=== PATIENT | male | born 1965 | race Caucasian/White ===

== ENCOUNTER 2017-08-10 21:00 | Emergency (ER) | payer MEDICAID ==
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
[2017-08-10 21:23] VITALS: BP 134/80; PULSE 80; RESP 20; TEMP 97.9; O2SAT 93
[2017-08-10] MEDS ORDERED: IBUPROFEN 600 MG TAB PO ONE (21:40)
[2017-08-10] MEDS ORDERED: ACETAMINOPHEN 325 MG TAB PO ONE (21:40)
== END 2017-08-10 22:14 | disposition home or self-care (01) ==
DX: S70.12XA Contusion of left thigh, initial encounter (principal); S50.12XA Contusion of left forearm, initial encounter; S30.0XXA Contusion of lower back and pelvis, initial encounter; Y08.02XA Assault by strike by baseball bat, initial encounter; F17.200 Nicotine dependence, unspecified, uncomplicated

== ENCOUNTER 2017-09-30 12:06 | Emergency (ER) | payer MEDICAID ==
[~2017-09-30 12:06] MED LIST: AMOXICILLIN/CLAVULANATE POT 875/125 MG TAB PO SCH
[2017-09-30 12:22] VITALS: BP 124/90; PULSE 86; RESP 16; TEMP 97.9; O2SAT 96
[2017-09-30] MEDS ORDERED: AMOXICILLIN/CLAVULANATE POT 875/125 MG TAB PO ONE ×2 (12:22)
--- NOTE | 2017-09-30 12:26 | EDPHY ---
H & P Time Seen by Provider: 09/30/17 12:18 HPI/ROS: CHIEF COMPLAINT: Dog bite right medial thigh HISTORY OF PRESENT ILLNESS: 52-year-old homeless male with out-of-date tetanus , no medication allergies, arrives via ambulance after he states and another homeless males dog bit him on the right medial distal thigh shortly prior to arrival through his jeans. Has been reported to animal control police. Patient denies foreign body sensation. Denies paresthesia. Able bear weight PHYSICAL EXAM (Prior to examination, patient consented to physical exam, hands were washed and my usual and customary physical exam procedures followed) 1) GENERAL: Well-developed, well-nourished, alert and oriented. Appears to be in no acute distress. 2) HEAD: Normocephalic 3) HEENT: sclera anicteric 4) LUNGS: Breathing comfortably. 5) SKIN: right medial distal thigh puncture wound/abrasion. No active bleeding. Superficial. 6) MUSCULOSKELETAL: [full pain-free range of motion of the knee joint with no obvious involvement of the joint capsule. No flexor extensor deficits at the Knee Smoking Status: Heavy smoker Constitutional: Initial Vital Signs Temperature (C) 36.6 C 09/30/17 12:06 Heart Rate 86 09/30/17 12:06 Respiratory Rate 16 09/30/17 12:06 Blood Pressure 124/90 H 09/30/17 12:06 O2 Sat (%) 96 09/30/17 12:06 O2 Delivery Mode Room Air Allergies/Adverse Reactions: No Known Allergies Allergy (Verified 09/30/17 12:16) Home Medications: Medication Instructions Recorded Amoxicillin/Clavulanate Pot 875 mg PO BID #14 tab 09/30/17 [Augmentin 875 mg tab] MDM/Departure - MDM Procedures: Procedure: Wound anesthetic Indications risks benefits discussed with patient he consented. 1% plain lidocaine infiltrated into the wound site prior to wound cleaning. Will be allowed to heal via secondary intention. ED Course/Re-evaluation: Patient's wound has been irrigated in the ER and will be allowed to heal via secondary intention. He has been started on Augmentin, tetanus updated, given MAP prescription of his Augmentin via the hospital. No signs of infection at this time. Doubt traumatic arthrotomy. I do not think that imaging studies or orthopedic consultation emergently indicated. Care of patient under supervision of secondary supervising physician Dr Walls . - Depart Disposition: Home, Routine, Self-Care Clinical Impression: Dog bite of right lower leg Qualifiers: Encounter type: initial encounter Qualified Code(s): S81.851A - Open bite, right lower leg, initial encounter; W54.0XXA - Bitten by dog, initial encounter ; W54.0XXA - Bitten by dog, initial encounter Condition: Good Instructions: Animal Bite (ED) Additional Instructions: Return to the ER if you develop redness, swelling, discharge, warmth to the wound, red streaks going up your leg, or any other symptoms that concern you. Prescriptions: Amoxicillin/Clavulanate Pot [Augmentin 875 mg tab] 875 mg PO BID #14 tab Referrals: [facility],. [Clinic] - 10/03/17
[2017-09-30] MEDS ORDERED: TDAP ADULT 0.5 ML INJ (BOOSTRIX) IM ONE ×2 (12:27)
== END 2017-09-30 13:08 | disposition home or self-care (01) ==
LOC: EDUNIT# → EDBD
DX: S81.851A Open bite, right lower leg, initial encounter (principal); F17.200 Nicotine dependence, unspecified, uncomplicated; Z23 Encounter for immunization; W54.0XXA Bitten by dog, initial encounter

== ENCOUNTER 2018-09-25 11:08 | Emergency (ER) | payer MEDICAID ==
[2018-09-25 11:20] VITALS: BP 111/79
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
== END 2018-09-25 11:25 | disposition home or self-care (01) ==
LOC: EDUNIT#
DX: M25.562 Pain in left knee (principal); F17.200 Nicotine dependence, unspecified, uncomplicated; Z59.0 Homelessness

== ENCOUNTER 2018-10-08 08:04 | Emergency (ER) | payer MEDICAID ==
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
[2018-10-08] MEDS ORDERED: IBUPROFEN 800 MG TAB PO ONE ×2 (08:45→08:46)
[2018-10-08 08:52] VITALS: BP 150/90
== END 2018-10-08 09:44 ==
LOC: EDUNIT# → UNDOADMIN 08:59
DX: S82.042A Displaced comminuted fracture of left patella, initial encounter for closed fracture (principal); V03.90XA Pedestrian on foot injured in collision with car, pick-up truck or van, unspecified whether traffic or nontraffic accident, initial encounter; Z59.0 Homelessness

== ENCOUNTER 2018-12-28 06:32 | Inpatient (IN) | payer MEDICAID ==
[2018-12-28] MEDS ORDERED: HYDROmorphONE/DILAUDID 2 MG/ML INJ IVP ONE (07:10)
[2018-12-28] MEDS ORDERED: NS 1,000 ML IV ONE (07:10)
[2018-12-28 07:16] LABS: PLATELET COUNT 377 10^3/uL (150-400)
[2018-12-28 07:25] LABS: INR 0.91 (0.83-1.16); PROTIME(PATIENT) 12.5 SEC (12.0-15.0)
[2018-12-28] MEDS ORDERED: HYDROmorphONE/DILAUDID 1 MG/ML INJ ONE (07:25)
[2018-12-28] MEDS ORDERED: VANCOMYCIN HCL/NORMAL SALINE 250 ML IV ONE (07:47)
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
[2018-12-28] MEDS ORDERED: ONDANSETRON 4 MG/2 ML VIAL IVP PRN (13:14)
[2018-12-28] MEDS ORDERED: ACETAMINOPHEN 325 MG TAB PO PRN (13:14)
[2018-12-28] MEDS ORDERED: HYDROmorphONE/DILAUDID 1 MG/ML INJ IVP PRN (13:14)
[2018-12-28] MEDS ORDERED: traMADol 50 MG TAB PO PRN (13:14)
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
[2018-12-28] MEDS: oxyCODONE IR 5 MG TAB PO PRN ×2 (14:41→20:03)
--- NOTE | 2018-12-28 15:53 | PDMN ---
Medical Necessity Medical necessity: Pt meets IP criteria as of 12/28/2018 per and RODRIGUE LEW ( Musculoskeletal Disease GRG); est los > 2mn for ongoing tx and evaluation of possible septic knee s/p recent hardware removal; requiring IV ABX, ID consultation, pain control and surgical consultation.
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
[2018-12-28] MEDS: VANCOMYCIN 1 GM in NS 250 ML IV SCH (19:56)
[2018-12-29] MEDS: oxyCODONE IR 5 MG TAB PO PRN ×6 (00:44→23:29)
[2018-12-29] MEDS: VANCOMYCIN 1 GM in NS 250 ML IV SCH ×2 (08:42→19:58)
--- NOTE | 2018-12-29 09:35 | PCMIDPN ---
Assessment/Plan: 1. Left knee postoperative cielo-incisional cellulitis, with concern for deeper infection: Reviewed MRI with Dr. Sr. Patient to have an aspirate of the fluid seen on MRI today as well as the joint to make sure he does not have a septic arthritis. It is heartening that culture specimens from [facility] shown no growth. This may all be superficial. Inflammatory markers only marginally elevated (CRP). Continue vancomycin as is for now. 2. Miscellaneous: Patient is homeless and there is an outbreak of hepatitis a among the homeless population. Will obtain hepatitis a total antibody and vaccinate if not immune. He does not feel he needs HIV testing. Last Tdap 2017. Over 25 min spent with this patient today. Subjective: A bit grouchy this morning, but softened up when I started talking to him. States that he was admitted to [facility] in [place] last week. States that the knee was not infected or did not appear affected (no warmth or redness) prior to the hardware removal. I did call [facility] ( please see objective). For microbiology specimens. Patient is otherwise feeling reasonably well. Is having some discomfort in his left knee. Denies fevers or shaking chills. Objective: Afebrile Vancomycin 1 g IV q.12 hours Vital Signs Temp Pulse Resp BP Pulse Ox 36.7 C 79 96 H 106/71 94 12/29/18 08:00 12/29/18 08:00 12/29/18 08:00 12/29/18 08:00 12/29/18 04:00 12/28/18 12/29/18 12/30/18 05:59 05:59 05:59 Intake Total 1650 Output Total 2275 Balance -625 ESR 13 MM/HR (0-20) 12/28/18 06:50 C-Reactive Protein 12.7 mg/L (<10.0) H 12/28/18 06:50 Microbiology data obtained from [facility]: ([phone]) December 15: Left knee fluid: G stain culture negative December 16 blood cultures x2 negative December 17 knee fluid: G stain culture negative Surgical "tissue culture": G stain negative, culture negative, anaerobic culture fungal culture and AFB negative - Physical Exam General Appearance: other (Disheveled) EENT: pharynx normal, No scleral icterus, No thrush Respiratory: lungs clear Cardiac/Chest: regular rate, rhythm Extremities: other (Left knee: Swollen with sutures overlying the left knee. Cielo-incisional erythema that is fairly beet red. Blanches. No vesicles. No active drainage from the knee. He is unable to bend it given location of the sutures.) Abdomen: non-tender, soft Skin: No rash, No embolic lesions ICD10 Worksheet Patient Problems: Problems Problem Status Onset Cellulitis of knee, left Acute Fractured patella Acute
[2018-12-29] MEDS ORDERED: LIDOCAINE 1% 300 MG/30 ML SDV ONE (11:19)
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
--- NOTE | 2018-12-29 12:23 | SOAPPROG ---
SOAP Progress Note Assessment/Plan: 53 yo male w/ left ununited patella fx w/ ? infection, s/p ultrasound aspiration on 12/29/18 -on hospitalist service, pain/proph per primary -cont id recs, currently vanco abx -us aspiration results reviewed w/ dr. molina, dr. molina believes it is likely a post op hematoma, he will see the patient later this evening and discuss further treatment with the patient. -will attempt to obtain op report from [facility] in [place] Subjective: kaylie denies any issues, at this time, resting comfortably in bed, reprots the US drainage went well, denies any issues from the procedure, and the knee feels better than before a little bit. denies fevers/chills, denies cp/sob, denies numbness/tingling. reports pain is well controlled as long as he doesn't move the leg. Objective: passive extension loss 3 degrees, improved from previous day passive fleixion 3-35 w/ pain at end range, improved from previous day Vital Signs Temp Pulse Resp BP Pulse Ox 36.7 C 79 96 H 106/71 94 12/29/18 08:00 12/29/18 08:00 12/29/18 08:00 12/29/18 08:00 12/29/18 04:00 12/28/18 12/29/18 12/30/18 05:59 05:59 05:59 Intake Total 1650 50 Output Total 2350 600 Balance -625 -550 PT 12.5 SEC (12.0-15.0) 12/28/18 06:50 INR 0.91 (0.83-1.16) 12/28/18 06:50 ICD10 Worksheet Patient Problems: Problems Problem Status Onset Cellulitis of knee, left Acute Fractured patella Acute
[2018-12-29 13:40] LABS: HEPATITIS A ANTIBODY TOTAL NEGATIVE (NEGATIVE)
--- NOTE | 2018-12-29 18:02 | SOAPPROG ---
SOAP Progress Note Assessment/Plan: Assessment: likely postop hematoma Plan: 12/29/18 17:59 antibiotics followup with eden aquino surgeon no surgical debridement at this time Subjective: knee aspiration today fluid consistent with postop hematoma many RBC no crystals Objective: Vital Signs Temp Pulse Resp BP Pulse Ox 37.1 C 81 16 103/67 94 12/29/18 16:00 12/29/18 16:00 12/29/18 16:00 12/29/18 16:00 12/29/18 16:00 12/28/18 12/29/18 12/30/18 05:59 05:59 05:59 Intake Total 1650 1000 Output Total 2275 600 Balance -625 400 PT 12.5 SEC (12.0-15.0) 12/28/18 06:50 INR 0.91 (0.83-1.16) 12/28/18 06:50 see aspiration labs ICD10 Worksheet Patient Problems: Problems Problem Status Onset Cellulitis of knee, left Acute Fractured patella Acute
[2018-12-30] MEDS: oxyCODONE IR 5 MG TAB PO PRN ×6 (05:09→23:57)
[2018-12-30] MEDS: VANCOMYCIN 1 GM in NS 250 ML IV SCH (08:03)
[2018-12-30] MEDS: ENOXAPARIN 40 MG/0.4 ML SYR SC SCH (08:08)
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
[2018-12-30] MEDS ORDERED: IBUPROFEN 200 MG TAB PO PRN (13:49)
--- NOTE | 2018-12-30 14:17 | ASMTCMCOM ---
CM Note CM Note Notes: Spoke with pt re SNF recommendation. He is currently unsafe to return to the streets. He is willing to commit to a 30 day stay. Sent referrals via Allscripts to [facility] [place], [place]. [id number] started but not completed. [employer] was notified re LTC Medicaid application. CM will continue to follow. Date Signed: 12/30/2018 02:16 PM Electronically Signed By:PERICO Coombs
[2018-12-30] MEDS: AMOXICILLIN/CLAVULANATE POT 875/125 MG TAB PO SCH (20:01)
[2018-12-31] MEDS ORDERED: AMOXICILLIN/CLAVULANATE POT 875/125 MG TAB PO SCH
[2018-12-31] MEDS: oxyCODONE IR 5 MG TAB PO PRN ×2 (04:58→08:09)
[2018-12-31 07:37] VITALS: BP 103/59
[2018-12-31] MEDS: AMOXICILLIN/CLAVULANATE POT 875/125 MG TAB PO SCH (07:37)
[2018-12-31] MEDS: ENOXAPARIN 40 MG/0.4 ML SYR SC SCH (07:40)
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
--- NOTE | 2018-12-31 13:30 | SOAPPROG ---
SOAP Progress Note Assessment/Plan: Assessment: likely postop hematoma Plan: 12/29/18 17:59 antibiotics followup with eden aquino surgeon no surgical debridement at this time 12/31/18 13:28 Negative Growth to date Clinically benign Likely hematoma Suture removal in one week KNee immobilizer maybe helpful to walk effectively Social Dispo Subjective: feeling well sore knee Objective: Vital Signs Temp Pulse Resp BP Pulse Ox 36.9 C 72 17 103/59 L 93 12/31/18 07:34 12/31/18 07:34 12/31/18 07:34 12/31/18 07:34 12/31/18 07:34 Microbiology 12/29/18 12:45 Gram Stain - Final Knee - Aspirate Laboratory Results 12/30/18 05:56 12/30/18 12/31/18 01/01/19 05:59 05:59 05:59 Intake Total 1480 1194 400 Output Total 1500 925 500 Balance -20 269 -100 PT 12.5 SEC (12.0-15.0) 12/28/18 06:50 INR 0.91 (0.83-1.16) 12/28/18 06:50 10-50 knee ROM with minimal pain. suture line intact. some redness and reactivity around nylon suture no active drainage ICD10 Worksheet Patient Problems: Problems Problem Status Onset Cellulitis of knee, left Acute Fractured patella Acute
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
--- NOTE | 2018-12-31 23:36 | ASMTLACE ---
LACE Length of stay for Answers: 3 days current admission Acuity / Level of Answers: Yes Care: Did the patient have an inpatient admission? # of Emergency department Answers: 3-4 visits in the last 6 months Social determinants Answers: History of substance abuse (ETOH, street drugs, prescription drugs, etc.) Homelessness (street, usp) Score: 15 Date Signed: 12/31/2018 11:36 PM Electronically Signed By:Maru Cheatham RN
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
== END 2018-12-31 17:07 | disposition home or self-care (01) | DRG 383 ==
LOC: EDUNIT# → OBSVTOIN 13:13 → F3N 14:27
PROVIDERS: ADMIT Emergency Medicine; ATTEND Emergency Medicine
PROC: 0S9D3ZX Drainage of Left Knee Joint, Percutaneous Approach, Diagnostic (ICD-10-PCS; principal; 2018-12-29)
DX: L03.116 Cellulitis of left lower limb (principal); S82.002S Unspecified fracture of left patella, sequela; W19.XXXA Unspecified fall, initial encounter; Z59.0 Homelessness; F17.210 Nicotine dependence, cigarettes, uncomplicated
CPT/HCPCS: 86708-90; 96365; 97116-GP; 97161-GP; 97165-GO; 97530-GP; J1170; J1650; J3370

== ENCOUNTER 2019-04-07 19:40 | Emergency (ER) | payer MEDICAID, OTHER ==
[2019-04-07] MEDS ORDERED: NS 1,000 ML IV ONE (19:53)
--- NOTE | 2019-04-07 20:06 | EDPHY ---
H & P Time Seen by Provider: 04/07/19 19:41 HPI/ROS: HPI Left knee pain, swelling. 53-year-old male with [place] [facility] from [facility]. This patient presents to the emergency department stating that he has had increasing and persistent pain in his left knee with swelling since this morning. He denies any history of acute trauma. Review of his medical records indicate that he had a grossly displaced traumatic patellar fracture with hardware placement back in September of 2018. This subsequently became infected. He had hardware removal sometime late 2017 and was treated for infection. He was then seen in our emergency department in November of 2018 with a cellulitic left knee. He was treated as an inpatient with IV vancomycin at that time. Dr. Cuello of the Orthopedic service performed an arthrocentesis. Fluid was negative for organisms. I did not find records of an OR washout during that visit. He reports more recently that he had left knee replacement up in [place] about a month ago. Please see past medical history below for further details. The patient is currently booked at the [facility]. His supervising officer who is with him tells me he will be there until at least the of this month. ROS: Constitutional: No fever, no chills. No weakness. Eyes: No discharge. No changes in vision. ENT: No sore throat. No nasal congestion or rhinorrhea. Respiratory: No cough. No shortness of breath. Cardiac: No chest pain, no palpitations. Gastrointestinal: No abdominal pain, no vomiting, no diarrhea. Genitourinary: No hematuria. No dysuria or increased frequency with urination. Musculoskeletal: No back pain. No neck pain. As above. Skin: No rashes. Neurological: No headache. No focal weakness or altered sensation. Past medical history: Traumatic knee injury in September of 2018. As above. Social history: Smokes a pack a cigarettes daily, denies alcohol. Denies IV drugs and street drugs. Homeless. Originally from [place]. Physical Exam: General Appearance: Alert, dirty and disheveled, no distress. This patient is responding to questions appropriately and in full sentences. This patient appears well-hydrated and well-nourished. Head: Normocephalic atraumatic. Eyes: Pupils equal and round no pallor or injection. No lid edema, erythema or injection. Respiratory: There are no retractions, lungs are clear to auscultation with good air movement bilaterally. Cardiovascular: Regular rate and rhythm. No murmur. Gastrointestinal: Abdomen is soft and nontender, no masses, bowel sounds normal. No focal tenderness at McBurney's point. No Sanchez sign. Neurological: Motor sensory function is grossly intact. Cranial nerves are normal. Gait is normal. Skin: Warm and dry, no rashes. Musculoskeletal: Neck is supple and nontender. Left knee exam: Large healed midline to medial surgical scar. Diffuse mild swelling with subtle, subtle erythema over the anterior superior medial aspect of the knee. Mildly tender on palpation. No fluctuance or evidence of abscess. Not able to flex or extend the knee significantly secondary to previous injury. But when I do this passively does not have any significant pain. He also does not have significant pain when I axially load the left knee. Left lower extremity neurovascularly intact. Psychiatric: No agitation. No depression. Database: EKG: Imaging: Left knee x-ray series: Displaced comminuted left patellar fracture, old. I do not appreciate any significant change in displacement of fracture from previous x-ray dated December 282018. Interpreted by me. No evidence of a knee replacement. Procedures: Emergency department course: Triage vital signs reviewed and are normal. He is afebrile. IV will be placed. This patient's presentation is consistent with a possible early non purulent cellulitis of the anterior soft tissues of the left knee. I do not feel he has a septic joint. Plan will be to give him a dose of IV Ancef in the emergency department. He is to be booked in [facility] until April 19. I will then discharge him on Keflex 500 mg four times daily for the next 10 days. Nursing staff will be able to give him this medication at the [facility]. Return to emergency department precautions will be provided to the nursing staff at the [facility]. 9:00 p.m., the patient has received his IV Ancef as noted above. He will be discharged back to [facility] with [facility]. Prescription for Keflex written in provided to his escorting officer. Instructions for [facility] staff nursing on medication dosing provided. Return to emergency department precaution instructions provided. The patient was discharged back to [facility] in good condition. Differential Diagnosis: The differential diagnosis on this patient includes but is not limited to previous displaced left knee patellar fracture, early left knee cellulitis. Septic left knee unlikely. This represents a partial list of diagnoses considered. These considerations are based on history, physical exam, past history, reassessment and diagnostic testing. Smoking Status: Heavy smoker Constitutional: Initial Vital Signs Temperature (C) 36.8 C 04/07/19 19:44 Heart Rate 61 04/07/19 19:44 Respiratory Rate 16 04/07/19 19:44 Blood Pressure 122/73 H 04/07/19 19:44 O2 Sat (%) 97 04/07/19 19:44 O2 Delivery Mode Room Air Allergies/Adverse Reactions: No Known Allergies Allergy (Verified 12/28/18 06:38) Home Medications: Medication Instructions Recorded Acetaminophen [Tylenol 325mg (*)] 650 mg PO Q4 PRN tab 12/31/18 Amoxicillin/Clavulanate Pot 875 mg PO BID #8 tab 12/31/18 [Augmentin 875 MG TAB (*)] Cephalexin [Keflex (*)] 500 mg PO Q6 10 Days cap 04/07/19 Medical Decision Making - Data Points Medications Given: Discontinued Medications Sodium Chloride (Ns) 1,000 mls @ 0 mls/hr IV EDNOW ONE; Wide Open PRN Reason: Protocol Stop: 04/07/19 19:54 Last Admin: 04/07/19 20:21 Dose: 1,000 mls Cefazolin Sodium/Dextrose (Ancef) 100 mls @ 200 mls/hr IV EDNOW ONE PRN Reason: Protocol Stop: 04/07/19 20:57 Last Admin: 04/07/19 20:33 Dose: 100 mls Departure - Departure Disposition: Law Enforcement/Court/Senior Living Clinical Impression: Cellulitis of left knee, Left patella fracture Condition: Good Instructions: Cellulitis (ED) Additional Instructions: Read and follow provided instructions. [facility]. Ibuprofen dosin mg every 6 hours with meals for the next 3 days only. Take only as needed for pain. Keflex/cephalexin 500 mg: Give 1 tablet 4 times daily or every 6 hr for 8-10 days. Return this patient to the emergency department for worsening swelling, fever, pain, redness or discoloration involving the left knee or other serious concerns. This patient should be seen by an orthopedic knee specialist when released from [facility]. Referrals: Yo Faust MD [Medical Doctor] - As per Instructions Prescriptions: Cephalexin [Keflex (*)] 500 mg PO Q6 10 Days cap
[2019-04-07] MEDS ORDERED: ceFAZolin 2 GM/DEXTROSE 100 ML IV ONE (20:28)
[2019-04-07 21:20] VITALS: BP 111/71
== END 2019-04-07 21:20 ==
DX: L03.116 Cellulitis of left lower limb (principal); S82.002S Unspecified fracture of left patella, sequela; F17.200 Nicotine dependence, unspecified, uncomplicated; Z59.0 Homelessness
CPT/HCPCS: 96365; J0690; L1830